=== PATIENT | male | born 1985 | race Caucasian/White ===

== ENCOUNTER 2017-10-16 00:21 | Emergency (ER) | payer MEDICAID ==
[~2017-10-16] VITALS: Ht 182.9 cm; Wt 82.5 kg
[~2017-10-16 00:21] MED LIST: OLAN5TAB3 PO
[2017-10-16] MEDS ORDERED: TRAZ-143 PO (00:49)
[2017-10-16 00:53] VITALS: BP 125/77
[2017-10-17] MEDS ORDERED: TRAZ-143 PO (01:45)
[2017-10-17] MEDS ORDERED: METH-603 PO (01:46)
== END 2017-10-16 00:54 | disposition home or self-care (01) ==
LOC: ER 00:21
DX: G47.00 Insomnia, unspecified (principal); F11.21 Opioid dependence, in remission; F15.10 Other stimulant abuse, uncomplicated; Z79.899 Other long term (current) drug therapy
CPT/HCPCS: 99283